=== PATIENT | female | born 1995 | race African-American/Black ===

== ENCOUNTER 2024-10-15 13:47 | Emergency (ER) | payer SELFPAY ==
[~2024-10-15] VITALS: Ht 167.6 cm; Wt 75.0 kg
[2024-10-15 13:50] VITALS: O2SAT 99
[2024-10-15 13:57] VITALS: BP 107/62; PULSE 74; RESP 18; TEMP 36.6; O2SAT 98
[2024-10-15] MEDS ORDERED: LIDOCAINE HCL 1% 20ML VIAL INFIL ONE (15:15)
== END 2024-10-15 17:00 | disposition left against medical advice (07) ==
LOC: ER 13:47
DX: S01.511A Laceration without foreign body of lip, initial encounter (principal); X58.XXXA Exposure to other specified factors, initial encounter; Y93.89 Activity, other specified; Y92.89 Other specified places as the place of occurrence of the external cause; Y99.8 Other external cause status
CPT/HCPCS: 12011; 99282; Z7610

== ENCOUNTER 2024-10-22 19:28 | Emergency (ER) | payer MEDICAID ==
[~2024-10-22] VITALS: Ht 167.6 cm; Wt 86.7 kg
[2024-10-22 19:53] VITALS: O2SAT 100
[2024-10-22] MEDS ORDERED: BO1 TP (20:22)
[2024-10-22 20:40] VITALS: BP 146/93; PULSE 84; RESP 18; TEMP 36.9; O2SAT 100
== END 2024-10-22 20:40 | disposition home or self-care (01) ==
LOC: ER 19:52
DX: S01.511D Laceration without foreign body of lip, subsequent encounter (principal); X58.XXXD Exposure to other specified factors, subsequent encounter
CPT/HCPCS: 99282